=== PATIENT | male | born 1995 | race Caucasian/White ===

== ENCOUNTER 2017-08-27 20:16 | Emergency (ER) | payer BC, OTHER ==
[~2017-08-27] VITALS: Ht 182.9 cm; Wt 72.6 kg
[~2017-08-27 20:16] MED LIST: NAPR-915 PO; ORPH100T PO
[2017-08-27 21:02] LABS: BASOPHILS % (AUTO) 1 % (0-10); EOSINOPHILS # (AUTO) 0.2 10^3/uL (0.0-0.3); EOSINOPHILS % (AUTO) 3 % (0-10); HEMATOCRIT 42 % (40-54); HEMOGLOBIN 15.2 G/DL (13.3-17.7); LYMPHOCYTES # (AUTO) 3.2 X 10^3 (1.0-4.0); LYMPHOCYTES % (AUTO) 37 % (12-44); MEAN CORPUSCULAR HEMOGLOBIN 31 PG (25-34); MEAN CORPUSCULAR HGB CONC 36 G/DL (32-36); MEAN CORPUSCULAR VOLUME 87 FL (80-99); MEAN PLATELET VOLUME 10.3 FL (7.4-10.4); MONOCYTES % (AUTO) 12 % (0-12); NEUTROPHILS # (AUTO) 4.1 X 10^3 (1.8-7.8); NEUTROPHILS % (AUTO) 48 % (42-75); PLATELET COUNT 317 10^3/uL (130-400); RED BLOOD COUNT 4.88 10^6/uL (4.35-5.85); RED CELL DISTRIBUTION WIDTH 12.2 % (10.0-14.5); WHITE BLOOD COUNT 8.6 10^3/uL (4.3-11.0)
[2017-08-27 21:07] LABS: PROTHROMBIN TIME PATIENT 13.3 SEC (12.2-14.7)
[2017-08-27 21:14] LABS: ALANINE AMINOTRANSFERASE 13 U/L (0-55); ALBUMIN 4.5 GM/DL (3.2-4.5); ALKALINE PHOSPHATASE 58 U/L (40-136); BILIRUBIN,TOTAL 0.6 MG/DL (0.1-1.0); BUN/CREATININE RATIO 13; CALCIUM 9.4 MG/DL (8.5-10.1); CARBON DIOXIDE 25 MMOL/L (21-32); CHLORIDE 104 MMOL/L (98-107); CREATININE SERUM 1.04 MG/DL (0.60-1.30); GFR ESTIMATED > 60; GLUCOSE 143 MG/DL (70-105); POTASSIUM 3.5 MMOL/L (3.6-5.0); SODIUM 139 MMOL/L (135-145); TOTAL PROTEIN 7.3 GM/DL (6.4-8.2)
[2017-08-27 21:21] LABS: MYOGLOBIN SERUM 28.4 NG/ML (10.0-92.0)
--- NOTE | 2017-08-27 21:25 | Diagnostic Imaging Report ---
Clinical indication: Patient with chest pain starting after playing with cousins outside. Exam: Chest x-ray PA and lateral views. Comparisons: Chest x-ray dated 03/13/2015. Findings: Lungs/pleura: Lungs are clear. There is no pneumothorax. There is no pleural effusion. Mediastinum: Unremarkable. Pulmonary vasculature: Unremarkable. Heart: Unremarkable. Bones/extrathoracic soft tissue: Unremarkable. Impression: There is no radiographic evidence of acute cardiopulmonary process. Dictated by: Dictated on workstation # [id number]
--- NOTE | 2017-08-27 21:34 | ED Chest Pain ---
General Chief Complaint: Chest Pain Stated Complaint: CHEST PAIN Nursing Triage Note: PT BROUGHT IN BY AUNT AND UNCLE WITH COMPLAINT OF CHEST PAIN. PER FAMILY, STATED PT WAS OUTSIDE PLAYING WITH YOUNGER KIDS. PT CAME IN AND WENT UPSTAIRS. LITTLE KIDS CAME DOWN AND ALERTED THEM THAT PT WAS NOT FEELING WELL. STATES SYMPTOMS STARTED APPROXIMATELY 1945. PT STATES HIS CHEST HURTS ALL OVER, AND FEELS COLD AND SWEATY. Nursing Sepsis Screen: No Definite Risk Source: patient Exam Limitations: no limitations History of Present Illness Date Seen by Provider: Aug 27, 2017 Time Seen by Provider: 20:22 Initial Comments This 22-year-old young man presents to the emergency room with generalized chest pain that started around 19:45. He had been outside playing with younger children just prior to onset. He was walking upstairs when he began to feel cold, sweaty, and short of air. He describes the pain as a burning sensation in the central chest rated as 8/10. Deep breathing does not seem to affect the pain. He denies any cough, nausea, vomiting, fever, or other acute problems. He denies any prior episodes. He has had gradual improvement since onset. He denies any drug or alcohol use. Patient denied any family history of cardiac problems. Patient denies feeling anxious but appears subjectively anxious. Allergies and Home Medications Allergies Coded Allergies: No Known Drug Allergies (Unverified , 03/13/15) Patient Home Medication List Home Medication List Reviewed: Yes Review of Systems Constitutional: see HPI EENTM: No Symptoms Reported Respiratory: See HPI Cardiovascular: See HPI Gastrointestinal: No Symptoms Reported Genitourinary: No Symptoms Reported Musculoskeletal: no symptoms reported Skin: no symptoms reported Psychiatric/Neurological: No Symptoms Reported Endocrine: No Symptoms Reported Past Tlkhdnv-Qofdkp-Yriexo Hx Past Med/Social Hx: Reviewed Nursing Past Med/Soc Hx Patient Social History Alcohol Use: Denies Use Recreational Drug Use: No Smoking Status: Never a Smoker Recent Foreign Travel: No Contact w/Someone Who Travel: No Recent Infectious Disease Expo: No Recent Hopitalizations: No Immunizations Up To Date Tetanus Booster (TDap): Less than 5yrs PED Vaccines UTD: Yes Seasonal Allergies Seasonal Allergies: No Past Medical History Surgeries: No Respiratory: No Cardiac: No Neurological: No Reproductive Disorders: No Genitourinary: No Gastrointestinal: No Musculoskeletal: No Endocrine: No HEENT: No Cancer: No Psychosocial: No Integumentary: No Blood Disorders: No Family Medical History Reviewed and Corrections made No Pertinent Family Hx Physical Exam Vital Signs Capillary Refill : Less Than 3 Seconds Height, Weight, BMI Height: 6'0" Weight: 160lbs. oz. 72.632941bv; BMI Method:Stated General Appearance: No Apparent Distress, WD/WN HEENT: PERRL/EOMI, Normal ENT Inspection Neck: Normal Inspection Respiratory: Lungs Clear, Normal Breath Sounds, No Accessory Muscle Use, No Respiratory Distress, Other (Anterior chest wall minimally tender to palpation) Cardiovascular: Regular Rate, Rhythm, No Edema, No Murmur, Normal Peripheral Pulses Gastrointestinal: Normal Bowel Sounds, Non Tender, Soft Extremity: Normal Capillary Refill, Normal Inspection, No Calf Tenderness, No Pedal Edema, Other (Negative Deann) Neurologic/Psychiatric: Alert, Oriented x3, No Motor/Sensory Deficits, Normal Mood/Affect, 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 Norm as Tested, Other (Perhaps slightly anxious) Skin: Normal Color, Warm/Dry Progress/Results/Core Measures Results/Orders Lab Results Laboratory Tests Test 08/27/17 20:25 08/27/17 20:31 Range/Units White Blood Count 8.6 4.3-11.0 10^3/uL Red Blood Count 4.88 4.35-5.85 10^6/uL Hemoglobin 15.2 13.3-17.7 G/DL Hematocrit 42 40-54 % Mean Corpuscular Volume 87 80-99 FL Mean Corpuscular Hemoglobin 31 25-34 PG Mean Corpuscular Hemoglobin Concent 36 32-36 G/DL Red Cell Distribution Width 12.2 10.0-14.5 % Platelet Count 317 130-400 10^3/uL Mean Platelet Volume 10.3 7.4-10.4 FL Neutrophils (%) (Auto) 48 42-75 % Lymphocytes (%) (Auto) 37 12-44 % Monocytes (%) (Auto) 12 0-12 % Eosinophils (%) (Auto) 3 0-10 % Basophils (%) (Auto) 1 0-10 % Neutrophils # (Auto) 4.1 1.8-7.8 X 10^3 Lymphocytes # (Auto) 3.2 1.0-4.0 X 10^3 Monocytes # (Auto) 1.0 0.0-1.0 X 10^3 Eosinophils # (Auto) 0.2 0.0-0.3 10^3/uL Basophils # (Auto) 0.0 0.0-0.1 10^3/uL Erythrocyte Sedimentation Rate 2 0-15 MM/HR Prothrombin Time 13.3 12.2-14.7 SEC INR Comment 1.0 0.8-1.4 Activated Partial Thromboplast Time 27 24-35 SEC D-Dimer 0.34 0.00-0.49 UG/ML Sodium Level 139 135-145 MMOL/L Potassium Level 3.5 L 3.6-5.0 MMOL/L Chloride Level 104 98-107 MMOL/L Carbon Dioxide Level 25 21-32 MMOL/L Anion Gap 10 5-14 MMOL/L Blood Urea Nitrogen 14 7-18 MG/DL Creatinine 1.04 0.60-1.30 MG/DL Estimat Glomerular Filtration Rate > 60 BUN/Creatinine Ratio 13 Glucose Level 143 H 70-105 MG/DL Calcium Level 9.4 8.5-10.1 MG/DL Magnesium Level 2.0 1.8-2.4 MG/DL Total Bilirubin 0.6 0.1-1.0 MG/DL Aspartate Amino Transf (AST/SGOT) 15 5-34 U/L Alanine Aminotransferase (ALT/SGPT) 13 0-55 U/L Alkaline Phosphatase 58 40-136 U/L Myoglobin 28.4 10.0-92.0 NG/ML Troponin I < 0.30 <0.30 NG/ML C-Reactive Protein High Sensitivity 0.04 0.00-0.50 MG/DL Total Protein 7.3 6.4-8.2 GM/DL Albumin 4.5 3.2-4.5 GM/DL Glucometer 138 H 70-110 MG/DL My Orders Orders - RICHARD ESQUIVEL MD Cbc With Automated Diff (08/27/17 20:50) Magnesium (08/27/17 20:50) Ekg Tracing (08/27/17 20:50) Cardiac Profile 1 (08/27/17 20:50) Comprehensive Metabolic Panel (08/27/17 20:50) Myoglobin Serum (08/27/17 20:50) Protime With Inr (08/27/17 20:50) Partial Thromboplastin Time (08/27/17 20:50) O2 (08/27/17 20:50) Monitor-Rhythm Ecg Trace Only (08/27/17 20:50) Saline Lock/Iv-Start (08/27/17 20:50) Fibrin Degradation Products (08/27/17 20:50) Hs C Reactive Protein (08/27/17 20:50) Erythrocyte Sedimentation Rate (08/27/17 20:50) Chest Pa/Lat (2 View) (08/27/17 20:53) Ketorolac Injection (Toradol Injection) (08/27/17 21:45) Iv Push Sales Training Representative Ed (08/27/17 ) Medications Given in ED Vital Signs/I&O Blood Pressure Mean: 113 FSBG Bedside Testing Finger Stick Blood Glucose: 138 Blood Glucose Action Taken: rn notified Progress Progress Note : Time: 22:29 Progress Note Cardiopulmonary workup was unremarkable. Patient's pain improved to 3/10 from 8 /10 after administration of Toradol. He was dismissed home with return precautions. Initial ECG Impression Date: Aug 27, 2017 Initial ECG Impression Time: 20:22 Initial ECG Rate: 73 Initial ECG Rhythm: Normal Sinus Comment Sinus rhythm with rate dependent on respirations. No ST elevation or depression. No abnormal intervals. LVH by automated read. Diagnostic Imaging Diagonstic Imaging: Xray Plain Films/CT/US/NM/MRI: chest Comments Chest x-ray viewed by me and report reviewed. See report below: NAME: SENTHIL CASTRO [facility] REC#: [id number] PT STATUS: REG ER : 1995 PHYSICIAN: RICHARD ESQUIVEL MD ADMIT DATE: 08/27/17/ER Draft Date of Exam:08/27/17 CHEST PA/LAT (2 VIEW) Clinical indication: Patient with chest pain starting after playing with cousins outside. Exam: Chest x-ray PA and lateral views. Comparisons: Chest x-ray dated 03/13/2015. Findings: Lungs/pleura: Lungs are clear. There is no pneumothorax. There is no pleural effusion. Mediastinum: Unremarkable. Pulmonary vasculature: Unremarkable. Heart: Unremarkable. Bones/extrathoracic soft tissue: Unremarkable. Impression: There is no radiographic evidence of acute cardiopulmonary process. Dictated on workstation # [id number] Dict: 08/27/172109 Trans: 08/27/172123 [facility] [id number] Interpreted by: ISAC DIEHL MD Departure Impression Primary Impression: Atypical chest pain Disposition: HOME, SELF-CARE Condition: Against Medical Advice Departure-Patient Inst. Decision time for Depature: 22:27 Referrals: NO,LOCAL PHYSICIAN (PCP/Family) Primary Care Physician Patient Instructions: Chest Pain (DC) Add. Discharge Instructions: You may take ibuprofen up to 600 mg every 6 hours as needed for pain. Add Tylenol (acetaminophen) up to 1000 mg every 6 hours as needed for additional pain relief. Establish with a primary care provider and follow-up as soon as possible. Return to emergency room if symptoms worsen again or if you develop new symptoms. All discharge instructions reviewed with patient and/or family. Voiced understanding. RICHARD ESQUIVEL MD Aug 27, 2017 21:33
[2017-08-27] MEDS ORDERED: KETOROLAC 30 MG/ML VIAL IVP ONE (21:45)
[2017-08-27 22:41] VITALS: BP 136/88
== END 2017-08-27 22:41 | disposition home or self-care (01) ==
LOC: EDUNIT# 20:16 → ER 20:17
DX: R07.89 Other chest pain (principal)
CPT/HCPCS: 36415; 71046; 80053; 82962; 83735; 83874; 84484; 85025; 85379; 85610; 85652; 85730; 86141; 93005; 93041; 96374

== ENCOUNTER 2020-03-25 00:17 | Emergency (ER) | payer BC ==
[~2020-03-25] VITALS: Ht 182 cm; Wt 84.0 kg
[2020-03-25] MEDS ORDERED: KETOROLAC 30 MG/ML VIAL ONE (00:36)
[2020-03-25] MEDS ORDERED: ASPIRIN 81 MG CHEW (CHILDREN'S ASA) ONE (00:36)
[2020-03-25] MEDS ORDERED: ACETAMINOPHEN 500 MG TAB (TYLENOL) ONE (00:38)
--- NOTE | 2020-03-25 00:54 | ED Chest Pain ---
General Chief Complaint: Chest Pain Stated Complaint: SHARP CHEST PAIN Source: patient History of Present Illness Date Seen by Provider: Mar 25, 2020 Time Seen by Provider: 00:26 Initial Comments PT ARRIVES VIA POV FROM HOME C/O MID CHEST PAIN SINCE 2199 TONIGHT--BEGAN WHILE LAYING IN BED NOTHING WORSENS PAIN, IMPROVED BY PUSHING ON THE CENTER OF HIS CHEST C/O NON-PRODUCTIVE COUGH X 1 WEEK NO SHORTNESS OF BREATH NO NASAL CONGESTION NO NAUSEA/VOMITING/DIARRHEA NO LOSS OF TASTE OR SMELL NO HEADACHE NO BODY ACHES HAS NOT TAKEN ANYTHING FOR SYMPTOMS AT ANY TIME NO HISTORY OF SIMILAR NO HISTORY OF RESPIRATORY OR CARDIAC PROBLEMS PT IS NON-SMOKER HAS NOT SOUGHT CARE AT ANY TIME FOR HIS COUGH NO KNOWN SICK CONTACTS PCP: NONE Allergies and Home Medications Allergies Coded Allergies: No Known Drug Allergies (Unverified , 03/13/15) Home Medications Benzonatate 100 Mg Capsule, 100 MG PO TID Prescribed by: JOSETTE KEITA on 03/25/20140 Guaifenesin/Dextromethorphan 1 Each Tbmp.12hr, 1 EACH PO BID Prescribed by: JOSETTE KEITA on 03/25/20140 Methylprednisolone 4 Mg Tab.ds.pk, 4 MG PO UD PER DOSE PACK INSTRUCTIONS Prescribed by: JOSETTE KEITA on 03/25/20140 Patient Home Medication List Home Medication List Reviewed: Yes Review of Systems Review of Systems Constitutional: see HPI, other (PT HAS FEVER HERE, PT UNAWARE OF FEVER) EENTM: No Symptoms Reported Respiratory: See HPI, Cough; Denies Shortness of Air Cardiovascular: See HPI, Chest Pain; Denies Edema, Denies Lightheadedness, Denies Palpitations, Denies Syncope Gastrointestinal: No Symptoms Reported Genitourinary: No Symptoms Reported Musculoskeletal: no symptoms reported Skin: no symptoms reported Psychiatric/Neurological: No Symptoms Reported Endocrine: No Symptoms Reported Hematologic/Lymphatic: No Symptoms Reported Past Hgxgrlj-Wbizef-Pmgazf Hx Past Med/Social Hx: Reviewed and Corrections made Patient Social History Alcohol Use: Rarely Uses Drug of Choice: DENIES Type Used: Smokeless Tobacco Recent Hopitalizations: No Immunizations Up To Date Tetanus Booster (TDap): Less than 5yrs PED Vaccines UTD: Yes Seasonal Allergies Seasonal Allergies: No Past Medical History Surgeries: No Respiratory: No Cardiac: No Neurological: No Reproductive Disorders: No Genitourinary: No Gastrointestinal: No Musculoskeletal: No Endocrine: No HEENT: No Cancer: No Psychosocial: No Integumentary: No Blood Disorders: No Family Medical History No Pertinent Family Hx Physical Exam Vital Signs Vital Signs - First Documented Capillary Refill : Less Than 3 Seconds Height, Weight, BMI Height: 6'0" Weight: 160lbs. oz. 72.115823nm; BMI Method:Stated General Appearance: No Apparent Distress, WD/WN, Other (DOES NOT APPEAR ILL OR TO BE IN ANY DISCOMFORT OR DISTRESS) HEENT: PERRL/EOMI Neck: Full Range of Motion, Normal Inspection, Non Tender, Supple Respiratory: Chest Non Tender, Normal Breath Sounds, No Accessory Muscle Use, No Respiratory Distress Cardiovascular: Regular Rate, Rhythm, No Edema, No JVD, No Murmur, Normal Peripheral Pulses Gastrointestinal: No Organomegaly, Non Tender, Soft Extremity: Normal Inspection, Normal Range of Motion, Non Tender, No Calf Tenderness, No Pedal Edema Neurologic/Psychiatric: Alert, Oriented x3, No Motor/Sensory Deficits, Normal Mood/Affect, 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 Norm as Tested Skin: Normal Color, Warm/Dry; No Rash Progress/Results/Core Measures Results/Orders Lab Results Laboratory Tests Test 03/25/20 00:40 Range/Units White Blood Count 11.4 H 4.3-11.0 10^3/uL Red Blood Count 4.64 4.30-5.52 10^6/uL Hemoglobin 14.3 13.3-17.7 g/dL Hematocrit 41 40-54 % Mean Corpuscular Volume 89 80-99 fL Mean Corpuscular Hemoglobin 31 25-34 pg Mean Corpuscular Hemoglobin Concent 35 32-36 g/dL Red Cell Distribution Width 12.2 10.0-14.5 % Platelet Count 268 130-400 10^3/uL Mean Platelet Volume 9.9 9.0-12.2 fL Immature Granulocyte % (Auto) 0 % Neutrophils (%) (Auto) 81 H 42-75 % Lymphocytes (%) (Auto) 7 L 12-44 % Monocytes (%) (Auto) 12 0-12 % Eosinophils (%) (Auto) 0 0-10 % Basophils (%) (Auto) 0 0-10 % Neutrophils # (Auto) 9.2 H 1.8-7.8 10^3/uL Lymphocytes # (Auto) 0.8 L 1.0-4.0 10^3/uL Monocytes # (Auto) 1.4 H 0.0-1.0 10^3/uL Eosinophils # (Auto) 0.0 0.0-0.3 10^3/uL Basophils # (Auto) 0.0 0.0-0.1 10^3/uL Immature Granulocyte # (Auto) 0.0 0.0-0.1 10^3/uL Neutrophils % (Manual) 80 % Lymphocytes % (Manual) 7 % Monocytes % (Manual) 11 % Band Neutrophils 2 % Blood Morphology Comment NORMAL Erythrocyte Sedimentation Rate 9 0-15 MM/HR Prothrombin Time 13.4 12.2-14.7 SEC INR Comment 1.0 0.8-1.4 Activated Partial Thromboplast Time 32 24-35 SEC Sodium Level 140 135-145 MMOL/L Potassium Level 3.2 L 3.6-5.0 MMOL/L Chloride Level 102 98-107 MMOL/L Carbon Dioxide Level 25 21-32 MMOL/L Anion Gap 13 5-14 MMOL/L Blood Urea Nitrogen 13 7-18 MG/DL Creatinine 1.10 0.60-1.30 MG/DL Estimat Glomerular Filtration Rate > 60 BUN/Creatinine Ratio 12 Glucose Level 125 H 70-105 MG/DL Calcium Level 8.4 L 8.5-10.1 MG/DL Corrected Calcium 8.1 L 8.5-10.1 MG/DL Magnesium Level 1.8 1.6-2.4 MG/DL Total Bilirubin 0.4 0.1-1.0 MG/DL Aspartate Amino Transf (AST/SGOT) 20 5-34 U/L Alanine Aminotransferase (ALT/SGPT) 21 0-55 U/L Alkaline Phosphatase 67 40-136 U/L Lactate Dehydrogenase 144 125-220 U/L Troponin I < 0.028 <0.028 NG/ML C-Reactive Protein High Sensitivity 1.02 H 0.00-0.50 MG/DL B-Type Natriuretic Peptide < 10.0 <100.0 PG/ML Total Protein 7.6 6.4-8.2 GM/DL Albumin 4.4 3.2-4.5 GM/DL Procalcitonin 0.06 <0.10 NG/ML Coronavirus 2019 (JEMIMA) Positive H Negative Micro Results Microbiology 03/25/20 Influenza Types A,B Antigen (YELENA) - Final, Complete My Orders Orders - JOSETTE KEITA DO Ed Iv/Invasive Line Start (03/25/20:26) Ekg Tracing (03/25/20:) Monitor-Rhythm Ecg Trace Only (03/25/20:) BNP (03/25/20) Cbc With Automated Diff (03/25/20:) Comprehensive Metabolic Panel (03/25/20) Magnesium (03/25/20:) Protime With Inr (03/25/20) Partial Thromboplastin Time (03/25/20) Influenza A And B Antigens (03/25/20:) Troponin I (03/25/20) Chest 1 View, Ap/Pa Only (03/25/20) Procalcitonin (Pct) (03/25/20) Hs C Reactive Protein (03/25/20) Erythrocyte Sedimentation Rate (03/25/20:) LDH (03/25/20:) Covid 19 Inhouse Test (03/25/20:) Aspirin Chewable Tablet (Baby Aspirin Ch (03/25/20 00:36) Ketorolac Injection (Toradol Injection) (03/25/20 00:36) Acetaminophen Tablet (Tylenol Tablet) (03/25/20 00:38) Manual Differential (03/25/20 00:40) Medications Given in ED Vital Signs/I&O 03/25/20 03/25/20 03/25/20 03/25/20 00:26 00:46 01:40 Temp 38.0 38.0 37.6 Pulse 116 92 Resp 18 16 B/P (MAP) 130/81 (97) 126/70 (97) Pulse Ox 99 100 O2 Delivery Room Air Room Air Room Air Progress Progress Note : Progress Note PLACED IN ISOLATION ROOM PPE WORN AT ALL TIMES COVID-19 TESTING PERFORMED PT ADVISED OF NEED FOR QUARANTINE NO HYPOXIA--O2 SATS 100% THROUGHOUT ER STAY, NO DYSPNEA, NO COUGH NOTED VITALS STABLE PLAYING/TEXTING ON PHONE THROUGHOUT ENTIRE ER STAY. Initial ECG Impression Date: Mar 25, 2020 Initial ECG Impression Time: 00:35 Initial ECG Rate: 104 Initial ECG Rhythm: Normal Sinus (MUCH ARTIFACT) Diagnostic Imaging Comments CXR--NO ACUTE PROCESS, PENDING RADIOLOGIST REVIEW Reviewed: Reviewed by Me Departure Impression Primary Impression: COVID-19 virus infection Additional Impression: Chest wall pain Disposition: HOME, SELF-CARE Condition: Stable Departure-Patient Inst. Referrals: NO,LOCAL PHYSICIAN (PCP/Family) Primary Care Physician Patient Instructions: Coronavirus Disease 2019 (COVID-19) (DC), Costochondritis (DC), Preventing the Spread of an Infectious Disease Add. Discharge Instructions: HOME, REST LOTS OF CLEAR LIQUIDS TYLENOL 1 GRAM / MOTRIN 800 MG 4 TIMES A DAY FOR PAIN OR FEVER QUARANTINE YOURSELF AND ALL HOUSEHOLD AND CLOSE CONTACTS FOR 2 WEEKS OR UNTIL CLEARED BY DR. OR HEALTH DEPT RETURN TO ER IF YOUR SYMPTOMS WORSEN All discharge instructions reviewed with patient and/or family. Voiced understanding. Scripts Guaifenesin/Dextromethorphan (Mucinex Dm ER 1,200-60 mg Tab) 1 Each Tbmp.12hr 1 EACH PO BID, #20 EA Prov: JOSETTE KEITA DO 03/25/20 Benzonatate (TESSALON PERLES) 100 Mg Capsule 100 MG PO TID, #30 CAP Prov: JOSETTE KEITA DO 03/25/20 Methylprednisolone (Methylprednisolone Dose Pack) 4 Mg Tab.ds.pk 4 MG PO UD for 6 Days, #21 PKG PER DOSE PACK INSTRUCTIONS Prov: JOSETTE KEITA DO 03/25/20 Work/School Note: Work Release Form Date Seen in the Emergency Department: Mar 25, 2020 Return to Work: Apr 09, 2020 Restrictions: Need Release from Doctor JOSETTE KEITA DO Mar 25, 2020 00:54
[2020-03-25 00:55] LABS: BASOPHILS % (AUTO) 0 % (0-10); EOSINOPHILS % (AUTO) 0 % (0-10); HEMATOCRIT 41 % (40-54); HEMOGLOBIN 14.3 g/dL (13.3-17.7); LYMPHOCYTES # (AUTO) 0.8 10^3/uL (1.0-4.0); LYMPHOCYTES % (AUTO) 7 % (12-44); MEAN CORPUSCULAR HEMOGLOBIN 31 pg (25-34); MEAN CORPUSCULAR HGB CONC 35 g/dL (32-36); MEAN CORPUSCULAR VOLUME 89 fL (80-99); MEAN PLATELET VOLUME 9.9 fL (9.0-12.2); MONOCYTES # (AUTO) 1.4 10^3/uL (0.0-1.0); MONOCYTES % (AUTO) 12 % (0-12); NEUTROPHILS # (AUTO) 9.2 10^3/uL (1.8-7.8); NEUTROPHILS % (AUTO) 81 % (42-75); PLATELET COUNT 268 10^3/uL (130-400); WHITE BLOOD COUNT 11.4 10^3/uL (4.3-11.0)
[2020-03-25 01:01] LABS: ALBUMIN 4.4 GM/DL (3.2-4.5)
[2020-03-25 01:02] LABS: CHLORIDE 102 MMOL/L (98-107); POTASSIUM 3.2 MMOL/L (3.6-5.0); PROTHROMBIN TIME PATIENT 13.4 SEC (12.2-14.7); SODIUM 140 MMOL/L (135-145)
[2020-03-25 01:03] LABS: CALCIUM 8.4 MG/DL (8.5-10.1)
[2020-03-25 01:04] LABS: GLUCOSE 125 MG/DL (70-105); TOTAL PROTEIN 7.6 GM/DL (6.4-8.2)
[2020-03-25 01:05] LABS: CARBON DIOXIDE 25 MMOL/L (21-32)
[2020-03-25 01:06] LABS: BILIRUBIN,TOTAL 0.4 MG/DL (0.1-1.0)
[2020-03-25 01:07] LABS: ALKALINE PHOSPHATASE 67 U/L (40-136)
[2020-03-25 01:08] LABS: GFR ESTIMATED > 60
[2020-03-25 01:09] LABS: BUN/CREATININE RATIO 12
[2020-03-25 01:11] LABS: ALANINE AMINOTRANSFERASE 21 U/L (0-55); MAGNESIUM 1.8 MG/DL (1.6-2.4)
[2020-03-25] MEDS ORDERED: METH4TAB10 PO ×2 (01:22→01:41)
[2020-03-25] MEDS ORDERED: GUAI1TBM19 PO ×2 (01:23→01:41)
[2020-03-25] MEDS ORDERED: BENZ100C18 PO ×2 (01:23→01:41)
[2020-03-25 01:29] LABS: ERYTHROCYTE SEDIMENTATION RATE 9 MM/HR (0-15)
[2020-03-25 01:40] VITALS: BP 126/70
[2020-03-25 02:06] LABS: BAND NEUTROPHILS 2 %; LYMPHOCYTES % (MANUAL) 7 %; MONOCYTES % (MANUAL) 11 %; NEUTROPHILS % (MANUAL) 80 %; RBC MORPH NORMAL
--- NOTE | 2020-03-25 06:35 | Diagnostic Imaging Report ---
INDICATION: Chest pain Portable chest 1:00 AM Heart size and pulmonary vascularity are normal. Lungs are clear. There are no effusions or pneumothoraces. IMPRESSION: Negative chest Dictated by: Dictated on workstation # [id number]
== END 2020-03-25 01:44 | disposition home or self-care (01) ==
LOC: EDUNIT# 00:17 → ER 00:20
DX: U07.1 COVID-19 (principal); Z79.52 Long term (current) use of systemic steroids
CPT/HCPCS: 71045; 80053; 83615; 83735; 83880; 84145; 84484; 85007; 85027; 85610; 85652; 85730; 86141; 87804; 93005; 93041; 99284; U0002; 36415; 87635